=== PATIENT | female | born 1965 | race Caucasian/White ===

== ENCOUNTER 2018-06-18 13:31 | Emergency (ER) | payer BC, OTHER ==
[~2018-06-18] VITALS: Ht 162.6 cm; Wt 88.1 kg
[2018-06-18 13:36] VITALS: TEMP 36.6; Ht 162.6 cm; Wt 88.1 kg
[2018-06-18] MEDS ORDERED: LEVO50TA6 PO (14:54)
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
[2018-06-18 16:10] VITALS: BP 155/88; PULSE 90; O2SAT 99
== END 2018-06-18 16:24 | disposition home or self-care (01) ==
LOC: C.EDB 13:34 → C.EDD 16:24
DX: S20.312A Abrasion of left front wall of thorax, initial encounter (principal); S30.811A Abrasion of abdominal wall, initial encounter; S81.012A Laceration without foreign body, left knee, initial encounter; V43.52XA Car driver injured in collision with other type car in traffic accident, initial encounter; Y93.89 Activity, other specified; Y99.8 Other external cause status; Y92.89 Other specified places as the place of occurrence of the external cause; E03.9 Hypothyroidism, unspecified; Z79.899 Other long term (current) drug therapy